=== PATIENT | male | born 1930 | race Caucasian/White ===

== ENCOUNTER 2018-05-20 22:02 | Inpatient (IN) | payer MEDICARE, BC ==
[~2018-05-20] VITALS: Ht 172.7 cm; Wt 79.5 kg
[~2018-05-20 22:02] MED LIST: COU1T PO; LISI-222 PO
[2018-05-20] MEDS ORDERED: CefTRIAXone 2gm/D5W 50ml 50 ML IV ONE (22:45)
[2018-05-20] MEDS ORDERED: normal saline 1000ML IV soln IVB ONE (22:45)
[2018-05-20 22:52] LABS: BASOPHILS % (AUTO) 0.4 % (0-1); EOSINOPHILS # (AUTO) 0.1 X10'3 (0-0.9); EOSINOPHILS % (AUTO) 1.3 % (0-6); HEMATOCRIT 46.9 % (42.0-52.0); HEMOGLOBIN 15.6 g/dl (14.0-17.9); LYMPHOCYTES # (AUTO) 0.7 X10'3 (1.1-4.8); LYMPHOCYTES % (AUTO) 8.4 % (21-51); MEAN CORPUSCULAR HEMOGLOBIN 29.9 PG (27.0-31.0); MEAN CORPUSCULAR HGB CONC 33.4 % (33.0-36.5); MEAN CORPUSCULAR VOLUME 89.7 FL (78-98); MEAN PLATELET VOLUME 9.2 FL (7.4-10.4); MONOCYTES # (AUTO) 0.5 X10'3 (0-0.9); MONOCYTES % (AUTO) 5.2 % (2-12); NEUTROPHILS # (AUTO) 7.4 X10'3 (1.8-7.7); NEUTROPHILS % (AUTO) 84.7 % (42-75); PLATELET COUNT 241 X10'3 (140-440); RED BLOOD COUNT 5.23 X10'6 (4.70-6.10); WHITE BLOOD COUNT 8.7 X10'3 (4.5-11.0)
[2018-05-20] MEDS ORDERED: acetaminophen 325mg tablet PO STA (22:52)
--- NOTE | 2018-05-20 23:01 | NUR ---
states pt has UTI and is on bactrim since Tuesday.
[2018-05-20 23:03] LABS: INR 1.5 INR; PARTIAL THROMBOPLASTIN TIME 30 SECONDS (22-32); PROTHROMBIN TIME 14.8 SECONDS (9.0-12.0)
[2018-05-20 23:11] LABS: ALANINE AMINOTRANSFERASE 20 U/L (12-78); ALBUMIN 3.9 G/DL (3.4-5.0); ALBUMIN/GLOBULIN RATIO 0.9 (1.1-1.5); ALKALINE PHOSPHATASE 108 IU/L (46-116); ANION GAP 13 (8-16); ASPARTATE AMINO TRANSFERASE 16 U/L (10-37); BILIRUBIN,TOTAL 0.6 MG/DL (0.1-1.0); BLOOD UREA NITROGEN 24 MG/DL (7-18); BUN/CREATININE RATIO 14.6 (5.4-32.0); CALCIUM 8.7 MG/DL (8.5-10.1); CHLORIDE 101 MMOL/L (99-107); CREATININE 1.64 MG/DL (0.60-1.10); GLUCOSE 113 MG/DL (70-104); POTASSIUM 4.5 MMOL/L (3.5-5.1); SODIUM 138 MMOL/L (135-145); TOTAL PROTEIN 8.2 G/DL (6.4-8.2); eGFR 40 ML/MIN
[2018-05-20 23:22] LABS: CLARITY,URINE CLEAR (Clear); COLOR,URINE YELLOW (Yellow); GLUCOSE, URINE NEGATIVE (Neg); KETONES,URINE TRACE mg/dl (Neg); LEUKOCYTE ESTERASE ,URINE NEGATIVE (Neg); NITRITES, URINE NEGATIVE (Neg); OCCULT BLOOD,URINE MODERATE (Neg); PROTEIN,URINE TRACE mg/dl (Neg); UROBILINOGEN,URINE 0.2 E.U/dL (0.2-1.0)
[2018-05-20 23:25] LABS: UA COLLECTION TYPE STRAIGHT CATH
[2018-05-20 23:25] LABS: MAGNESIUM 2.1 MG/DL (1.5-2.4)
[2018-05-20 23:39] LABS: BACTERIA,URINE NONE SEEN /HPF (Neg); HYALINE CASTS 0-3 /LPF (NEGATIVE); MUCUS STRANDS MODERATE /LPF (Neg); SQUAMOUS EPITHELIAL CELL,UR FEW /LPF (FEW); WBC,URINE 0-4 /HPF (0-4)
[2018-05-21] VITALS (25 sets, daily range): BP systolic 86–134; BP diastolic 42–95
[2018-05-21] MEDS ORDERED: acetaminophen 650mg rectal suppository RC PRN (00:05)
[2018-05-21] MEDS ORDERED: HYDROcodone/acetaminophen 10/325mg tab PO PRN (00:05)
[2018-05-21] MEDS ORDERED: metoclopramide 5 mg/ml inj IV PRN (00:05)
[2018-05-21] MEDS ORDERED: magnesium hydroxide 30ml (MOM) UD suspension PO PRN (00:05)
[2018-05-21] MEDS ORDERED: HYDROmorphone 1 mg/ml syringe IV PRN (00:05)
[2018-05-21] MEDS ORDERED: diltiazem 5mg/ml 5ml inj. IV ONE ×2 (00:05→14:55)
[2018-05-21] MEDS ORDERED: morphine 4 MG/ML inj SYRINge IV PRN (00:05)
[2018-05-21] MEDS ORDERED: normal saline 1000ML IV soln IV ONE (00:05)
[2018-05-21] MEDS ORDERED: diphenhydrAMINE 25mg capsule PO PRN (00:05)
[2018-05-21] MEDS ORDERED: mag hydrox/Alum hydrox/simeth 30ml oral suspension PO PRN (00:05)
[2018-05-21] MEDS ORDERED: ondansetron/PF 4mg/2ml inj IV PRN (00:05)
[2018-05-21] MEDS ORDERED: bisacodyl 10mg suppository rectal RC PRN (00:05)
[2018-05-21] MEDS ORDERED: acetaminophen 325mg tablet PO PRN ×2 (00:05)
[2018-05-21] MEDS ORDERED: diphenhydrAMINE 50 mg/ml inj IV PRN (00:05)
[2018-05-21] MEDS ORDERED: ibuprofen tablet 400 MG TABLET PO STA (00:08)
[2018-05-21] MEDS: normal saline 1000ml 1,000 ML IV SCH ×3 (01:20→21:20)
[2018-05-21 02:17] LABS: HEMOGLOBIN A1C 5.9 % (4.5-6.2)
[2018-05-21] MEDS ORDERED: METO50TA17 PO (02:21)
[2018-05-21 02:30] LABS: PHOSPHORUS 2.4 MG/DL (2.3-4.5)
[2018-05-21 04:35] LABS: TOTAL CELLS COUNTED 100
[2018-05-21 04:36] LABS: PLATELET ESTIMATE NORMAL
--- NOTE | 2018-05-21 06:49 | NUR ---
ATTEMPTED TO CALL REPORT. MARIAM COOK UNABLE TO TAKE REPORT. WILL CALL BACK
[2018-05-21] MEDS ORDERED: azithromycin/NS 500mg/250ml 250 ML IV SCH (08:00)
[2018-05-21] MEDS: CefTRIAXone/D5W-Rocephin 1gm 50 ML IV SCH ×2 (08:26→21:20)
[2018-05-21] MEDS: docusate sod 100mg capsule PO SCH ×2 (08:27→22:08)
[2018-05-21] MEDS: pantoprazole 40mg Tablet.DR PO SCH (08:27)
[2018-05-21 11:35] LABS: BASOPHILS % (AUTO) 0.6 % (0-1); EOSINOPHILS # (AUTO) 0.1 X10'3 (0-0.9); EOSINOPHILS % (AUTO) 1.8 % (0-6); HEMATOCRIT 44.5 % (42.0-52.0); HEMOGLOBIN 14.8 g/dl (14.0-17.9); LYMPHOCYTES # (AUTO) 0.6 X10'3 (1.1-4.8); LYMPHOCYTES % (AUTO) 7.3 % (21-51); MEAN CORPUSCULAR HEMOGLOBIN 29.6 PG (27.0-31.0); MEAN CORPUSCULAR HGB CONC 33.2 % (33.0-36.5); MEAN CORPUSCULAR VOLUME 89.2 FL (78-98); MONOCYTES # (AUTO) 0.4 X10'3 (0-0.9); MONOCYTES % (AUTO) 4.7 % (2-12); NEUTROPHILS # (AUTO) 6.5 X10'3 (1.8-7.7); NEUTROPHILS % (AUTO) 85.6 % (42-75); PLATELET COUNT 228 X10'3 (140-440); RED BLOOD COUNT 4.99 X10'6 (4.70-6.10); RED CELL DISTRIBUTION WIDTH 14.3 % (11.5-14.5); WHITE BLOOD COUNT 7.5 X10'3 (4.5-11.0)
[2018-05-21 11:45] LABS: INR 1.6 INR; PROTHROMBIN TIME 15.5 SECONDS (9.0-12.0)
[2018-05-21 11:48] LABS: ALANINE AMINOTRANSFERASE 13 U/L (12-78); ALBUMIN 3.2 G/DL (3.4-5.0); ALBUMIN/GLOBULIN RATIO 0.8 (1.1-1.5); ALKALINE PHOSPHATASE 89 IU/L (46-116); ANION GAP 12 (8-16); ASPARTATE AMINO TRANSFERASE 15 U/L (10-37); BILIRUBIN,TOTAL 0.5 MG/DL (0.1-1.0); BLOOD UREA NITROGEN 20 MG/DL (7-18); BUN/CREATININE RATIO 15.5 (5.4-32.0); CALCIUM 7.8 MG/DL (8.5-10.1); CHLORIDE 105 MMOL/L (99-107); CREATININE 1.29 MG/DL (0.60-1.10); GLUCOSE 108 MG/DL (70-104); POTASSIUM 4.1 MMOL/L (3.5-5.1); SODIUM 140 MMOL/L (135-145); TOTAL CARBON DIOXIDE 22.9 MMOL/L (24-32); eGFR 53 ML/MIN
[2018-05-21] MEDS ORDERED: albuterol 2.5 MG/3 ML nebule NEB ONE (12:10)
[2018-05-21] MEDS ORDERED: furosemide 20 MG/2 ML vial IV ONE (12:10)
[2018-05-21 12:21] LABS: ABG BASE EXCESS -6.5 mmol/L (-2.0-3.0); ABG HCO3 15.5 mmol/L (22.0-26.0); ABG OXYGEN SATURATION 96.3 % (95-98); ABG PCO2 (T) 23.8 mmHg (35.0-48.0); ABG PH (T) 7.433 (7.350-7.450); ABG PO2 (T) 80.6 mmHg (83-108); ALLEN'S TEST Positive; FCOHb 0.4 % (0.5-1.5); FO2Hb 95.9 % (94-100); TOTAL HEMOGLOBIN 15.2 G/dl (14.0-18.0)
--- NOTE | 2018-05-21 14:28 | NUR ---
1000 vitals for 05/21 wrong information. 1001 vitals are correct for 1000
[2018-05-21] MEDS: metoprolol tartrate 12.5mg (1/2 tablet) PO SCH ×3 (16:10→22:08)
[2018-05-21] MEDS ORDERED: diltiazem-D5W 125mg/125ml 125 ML IV PRN (16:42)
[2018-05-21] MEDS ORDERED: ketorolac tromethamine 15mg/ml inj. IV ONE (17:20)
--- NOTE | 2018-05-21 17:59 | NUR ---
Problems reprioritized. Patient report given, questions answered & plan of care reviewed with Koki COOK.
--- NOTE | 2018-05-21 18:50 | NUR ---
Page to Dr. Martin PAGER ID: [phone] MESSAGE: Re: Speedy Palmer RM: [id number] I am concerned about his fever maintaining after Tylenol and Toradol. Do you want to start some fluids? Heart rate still elevated starting Cardizem now. [facility] [phone] Dr. Martin returned call. Ordered 80ml/hr of normal saline. with continued cool packs to arm pits, groin, head and neck. Start Cardizem at 5mg/hr.
[2018-05-21] MEDS ORDERED: warfarin 1mg tablet PO SCH (20:00)
[2018-05-21] MEDS: furosemide 20 MG/2 ML vial IV SCH ×2 (20:00→22:34)
[2018-05-21] MEDS ORDERED: warfarin 1mg tablet PO ONE (21:00)
[2018-05-21] MEDS ORDERED: temazepam 15mg capsule PO PRN (21:00)
[2018-05-21] MEDS: diatr meglu/diatrizoate 30ml oral sol.-(3 dose) bottle PO SCH (22:10)
[2018-05-22] VITALS (26 sets, daily range): BP systolic 94–137; BP diastolic 38–99
--- NOTE | 2018-05-22 05:06 | NUR ---
Page to Dr. Schmidt. + Blood culture. PAGER ID: [phone] MESSAGE: Re: Speedy Leonsharita Rm [id number]. Positive blood culture gram + cocci. Patient is receiving Rocephin. Sarah QUINTEROU x [phone] Addendum: 05/22/18 at 0516 by Saundra Gay RN DR. SCHMIDT returned call. ORDER: D/C Rocephin start Vancomycin 1 gm BID
--- NOTE | 2018-05-22 06:05 | NUR ---
Problems reprioritized. Patient report given, questions answered & plan of care reviewed with JOEY Arguello. Patient awake and alert still oriented to person only at time of report.
--- NOTE | 2018-05-22 06:37 | NUR ---
Patient in room PCU 3017. I have received report from Sarah COOK and had the opportunity to ask questions and assume patient care. Pt is awake and respond appropriately. Normal Saline going at 80 mL/hr and Cardizem at 5 mL/hr. Will continue to monitor.
[2018-05-22 06:47] LABS: BASOPHILS % (AUTO) 0.3 % (0-1); EOSINOPHILS % (AUTO) 0.2 % (0-6); HEMATOCRIT 38.9 % (42.0-52.0); HEMOGLOBIN 12.8 g/dl (14.0-17.9); LYMPHOCYTES # (AUTO) 0.9 X10'3 (1.1-4.8); LYMPHOCYTES % (AUTO) 11.7 % (21-51); MEAN CORPUSCULAR HEMOGLOBIN 29.6 PG (27.0-31.0); MEAN CORPUSCULAR HGB CONC 32.9 % (33.0-36.5); MEAN PLATELET VOLUME 9.4 FL (7.4-10.4); MONOCYTES # (AUTO) 0.6 X10'3 (0-0.9); MONOCYTES % (AUTO) 7.2 % (2-12); NEUTROPHILS # (AUTO) 6.6 X10'3 (1.8-7.7); NEUTROPHILS % (AUTO) 80.6 % (42-75); PLATELET COUNT 205 X10'3 (140-440); RED BLOOD COUNT 4.33 X10'6 (4.70-6.10); RED CELL DISTRIBUTION WIDTH 14.2 % (11.5-14.5); WHITE BLOOD COUNT 8.1 X10'3 (4.5-11.0)
[2018-05-22 06:49] LABS: ALANINE AMINOTRANSFERASE 17 U/L (12-78); ALBUMIN/GLOBULIN RATIO 0.8 (1.1-1.5); ALKALINE PHOSPHATASE 70 IU/L (46-116); ANION GAP 11 (8-16); ASPARTATE AMINO TRANSFERASE 19 U/L (10-37); BILIRUBIN,TOTAL 0.6 MG/DL (0.1-1.0); BLOOD UREA NITROGEN 15 MG/DL (7-18); BUN/CREATININE RATIO 10.6 (5.4-32.0); CALCIUM 7.9 MG/DL (8.5-10.1); CHLORIDE 103 MMOL/L (99-107); CHOL/HDL RATIO 3.6 (0.00-4.99); CHOLESTEROL 130 MG/DL (0-200); CREATININE 1.41 MG/DL (0.60-1.10); GLUCOSE 104 MG/DL (70-104); HDL CHOLESTEROL 36 MG/DL (35-60); LDL CHOLESTEROL 80 MG/DL (50-100); POTASSIUM 3.5 MMOL/L (3.5-5.1); SODIUM 137 MMOL/L (135-145); TOTAL PROTEIN 6.6 G/DL (6.4-8.2); TRIGLYCERIDES 76 MG/DL (20-135); eGFR 48 ML/MIN
[2018-05-22 07:06] LABS: INR 1.7 INR; PROTHROMBIN TIME 16.8 SECONDS (9.0-12.0)
[2018-05-22 07:12] LABS: INR 1.7 INR; PROTHROMBIN TIME 16.9 SECONDS (9.0-12.0)
[2018-05-22] MEDS: metoprolol tartrate 12.5mg (1/2 tablet) PO SCH ×2 (07:18→20:05)
[2018-05-22] MEDS: pantoprazole 40mg Tablet.DR PO SCH (07:18)
[2018-05-22] MEDS: diatr meglu/diatrizoate 30ml oral sol.-(3 dose) bottle PO SCH ×2 (07:18→11:12)
[2018-05-22] MEDS: docusate sod 100mg capsule PO SCH ×2 (07:18→20:00)
[2018-05-22] MEDS: vancomycin/NS 1 GM ADD-VANTAGE 250 ML IV SCH (07:19)
[2018-05-22] MEDS: furosemide 20 MG/2 ML vial IV SCH ×2 (07:19→20:00)
[2018-05-22] MEDS: lisinopril 2.5mg tablet PO SCH (08:00)
[2018-05-22] MEDS: normal saline 1000ml 1,000 ML IV SCH (08:05)
[2018-05-22] MEDS ORDERED: pneumococcal 23-VAL P-sac vacc 25 mcg/0.5ml vial IMVAC ONE (10:00)
--- NOTE | 2018-05-22 10:43 | NUR ---
PAGER ID: [phone] MESSAGE: [phone] Radhika PalmerSpeedy Increased Cardizem to 7 mg/hr about 1 hour ago. Patient's BP is 109/44 and HR is 91. He is on NS at 80 mL/hr, continue IV fluids? Thank you, Saundra #[phone] Addendum: 05/22/18 at 1051 by Saundra Clemente RN Dr. Martin called back. Per Dr. Martin, continue Cardizem 7 mg/hr and discontinue IV NS of 80 mL/hr. Will continue to monitor.
--- NOTE | 2018-05-22 12:21 | NUR ---
PAGER ID: [phone] MESSAGE: [phone] has resulted. Can patient eat and drink? Thank you, Saundra #[phone]
[2018-05-22] MEDS ORDERED: diltiazem-D5W 125mg/125ml 125 ML IV PRN (16:42)
--- NOTE | 2018-05-22 18:39 | NUR ---
Problems reprioritized. Patient report given, questions answered & plan of care reviewed with Bandar COOK.
[2018-05-22] MEDS ORDERED: warfarin 1mg tablet PO ONE (21:00)
[2018-05-23] VITALS (14 sets, daily range): BP systolic 100–138; BP diastolic 59–96
[2018-05-23 05:44] LABS: BASOPHILS % (AUTO) 0.4 % (0-1); EOSINOPHILS # (AUTO) 0.4 X10'3 (0-0.9); EOSINOPHILS % (AUTO) 5.3 % (0-6); HEMATOCRIT 40.9 % (42.0-52.0); HEMOGLOBIN 13.8 g/dl (14.0-17.9); LYMPHOCYTES # (AUTO) 1.4 X10'3 (1.1-4.8); MEAN CORPUSCULAR HEMOGLOBIN 29.7 PG (27.0-31.0); MEAN CORPUSCULAR HGB CONC 33.6 % (33.0-36.5); MEAN CORPUSCULAR VOLUME 88.4 FL (78-98); MONOCYTES # (AUTO) 0.7 X10'3 (0-0.9); MONOCYTES % (AUTO) 9.2 % (2-12); NEUTROPHILS % (AUTO) 66.1 % (42-75); PLATELET COUNT 215 X10'3 (140-440); RED BLOOD COUNT 4.63 X10'6 (4.70-6.10); RED CELL DISTRIBUTION WIDTH 13.9 % (11.5-14.5); WHITE BLOOD COUNT 7.5 X10'3 (4.5-11.0)
[2018-05-23 05:59] LABS: ALANINE AMINOTRANSFERASE 17 U/L (12-78); ALBUMIN/GLOBULIN RATIO 0.8 (1.1-1.5); ALKALINE PHOSPHATASE 77 IU/L (46-116); ANION GAP 13 (8-16); ASPARTATE AMINO TRANSFERASE 19 U/L (10-37); BILIRUBIN,TOTAL 0.8 MG/DL (0.1-1.0); BLOOD UREA NITROGEN 13 MG/DL (7-18); BUN/CREATININE RATIO 12.1 (5.4-32.0); CALCIUM 8.5 MG/DL (8.5-10.1); CHLORIDE 102 MMOL/L (99-107); CREATININE 1.07 MG/DL (0.60-1.10); GLUCOSE 96 MG/DL (70-104); POTASSIUM 3.3 MMOL/L (3.5-5.1); SODIUM 137 MMOL/L (135-145); TOTAL CARBON DIOXIDE 22.5 MMOL/L (24-32); TOTAL PROTEIN 6.8 G/DL (6.4-8.2); eGFR 66 ML/MIN
[2018-05-23 06:01] LABS: INR 1.6 INR; PROTHROMBIN TIME 15.6 SECONDS (9.0-12.0)
--- NOTE | 2018-05-23 06:41 | NUR ---
Patient in room PCU 3017. I have received report from Bandar COOK and had the opportunity to ask questions and assume patient care. Will continue to monitor.
[2018-05-23] MEDS: docusate sod 100mg capsule PO SCH ×2 (08:00→20:00)
[2018-05-23] MEDS: metoprolol tartrate 12.5mg (1/2 tablet) PO SCH ×3 (08:00→20:07)
[2018-05-23] MEDS: lisinopril 2.5mg tablet PO SCH (08:00)
--- NOTE | 2018-05-23 08:30 | NUR ---
Spoke with Dr. Martin regarding patients low blood pressure of (100/72), pt is on Cardizem 7 mg/hr, and is scheduled to take Metoprolol PO, Lisinopril PO, and Lasix [address] Martin, change Cardizem drip to 5 mg/hr, give the Lasix, and hold the Metoprolol and Lisinopril. Per Dr. Martin, new order electrolyte replacement protocol. Will monitor continue to monitor
[2018-05-23] MEDS: pantoprazole 40mg Tablet.DR PO SCH (08:40)
[2018-05-23] MEDS: vancomycin/NS 1 GM ADD-VANTAGE 250 ML IV SCH (08:40)
[2018-05-23] MEDS: furosemide 20 MG/2 ML vial IV SCH ×2 (08:50→20:07)
[2018-05-23] MEDS ORDERED: magnesium 4gm in 100ml NS 100 ML IV PRN (08:55)
[2018-05-23] MEDS ORDERED: potassium Cl 20 mEq SR tablet PO PRN (08:55)
[2018-05-23] MEDS ORDERED: potassium Cl 40MEQ/NS 500ml 500 ML IV PRN ×2 (08:55)
[2018-05-23] MEDS ORDERED: diltiazem-D5W 125mg/125ml 125 ML IV PRN (09:08)
[2018-05-23] MEDS: potassium Cl 20 mEq SR tablet PO PRN ×3 (09:09→20:07)
[2018-05-23] MEDS: CefTRIAXone/D5W-Rocephin 1gm 50 ML IV SCH (13:08)
--- NOTE | 2018-05-23 18:10 | NUR ---
Problems reprioritized. Patient report given, questions answered & plan of care reviewed with Bandar COOK.
[2018-05-23] MEDS ORDERED: warfarin 3mg tablet PO ONE (21:00)
[2018-05-24 03:00] VITALS: BP 135/94
--- NOTE | 2018-05-24 03:54 | NUR ---
PAGER ID: [phone] MESSAGE: Bandar pickering [phone], Speedy Palmer [id number] Admitted for UTI sepsis, ALOC Afib RVR 05/21, Cardizem gtt DC'd 05/23 HR 120-130 Has Metoprolol 12.5 mg PO BID Add PO Cardizem? Addendum: 05/24/18 at 0435 by Bandar Jacobo RN ORDER: Cardizem 10mg IV Push now, repeat Q1H if HR not 80-90 if second IV push of Cardizem does not bring HR between 80-90 bpm, restart cardizem gtt @ 5mg/hr to reach goal of HR 80-90 bpm
[2018-05-24] MEDS ORDERED: diltiazem 5mg/ml 5ml inj. IV ONE (04:00)
[2018-05-24 06:00] VITALS: BP 127/91
--- NOTE | 2018-05-24 06:17 | NUR ---
Patient in room PCU 3017. I have received report from Bandar COOK and had the opportunity to ask questions and assume patient care.
[2018-05-24 06:45] LABS: INR 1.6 INR; PROTHROMBIN TIME 15.6 SECONDS (9.0-12.0)
[2018-05-24 06:54] LABS: ALANINE AMINOTRANSFERASE 10 U/L (12-78); ALBUMIN 2.9 G/DL (3.4-5.0); ALBUMIN/GLOBULIN RATIO 0.7 (1.1-1.5); ALKALINE PHOSPHATASE 72 IU/L (46-116); ANION GAP 14 (8-16); ASPARTATE AMINO TRANSFERASE 14 U/L (10-37); BILIRUBIN,TOTAL 0.8 MG/DL (0.1-1.0); BLOOD UREA NITROGEN 15 MG/DL (7-18); BUN/CREATININE RATIO 13.3 (5.4-32.0); CALCIUM 8.9 MG/DL (8.5-10.1); CHLORIDE 101 MMOL/L (99-107); CREATININE 1.13 MG/DL (0.60-1.10); GLUCOSE 101 MG/DL (70-104); POTASSIUM 3.5 MMOL/L (3.5-5.1); SODIUM 138 MMOL/L (135-145); TOTAL CARBON DIOXIDE 23.3 MMOL/L (24-32); eGFR 62 ML/MIN
[2018-05-24 07:02] LABS: INR 1.6 INR; PROTHROMBIN TIME 16.1 SECONDS (9.0-12.0)
[2018-05-24] MEDS: CefTRIAXone/D5W-Rocephin 1gm 50 ML IV SCH (08:26)
[2018-05-24] MEDS: lisinopril 2.5mg tablet PO SCH (08:26)
[2018-05-24] MEDS: metoprolol tartrate 12.5mg (1/2 tablet) PO SCH ×2 (08:27→23:05)
[2018-05-24] MEDS: furosemide 20 MG/2 ML vial IV SCH ×2 (08:27→23:04)
[2018-05-24] MEDS: docusate sod 100mg capsule PO SCH ×2 (08:27→20:00)
[2018-05-24] MEDS: pantoprazole 40mg Tablet.DR PO SCH (08:27)
[2018-05-24 09:54] LABS: MAGNESIUM 1.9 MG/DL (1.5-2.4)
[2018-05-24 11:00] VITALS: BP 101/64
[2018-05-24 15:00] VITALS: BP 101/68
[2018-05-24] MEDS: cefpodoxime proxetil 100mg tablet PO SCH (17:56)
--- NOTE | 2018-05-24 18:25 | NUR ---
Problems reprioritized. Patient report given, questions answered & plan of care reviewed with Bandar COOK.
[2018-05-24 19:00] VITALS: BP 105/66
[2018-05-24] MEDS ORDERED: warfarin 5mg tablet PO ONE (21:00)
[2018-05-24 23:00] VITALS: BP 127/91
[2018-05-24] MEDS: lactobacillus rhamnosus 10,000 MMU CELLS/CAPSULE PO SCH (23:04)
[2018-05-25] VITALS (7 sets, daily range): BP systolic 76–137; BP diastolic 54–110
[2018-05-25 06:03] LABS: ALANINE AMINOTRANSFERASE 20 U/L (12-78); ALBUMIN/GLOBULIN RATIO 0.7 (1.1-1.5); ALKALINE PHOSPHATASE 73 IU/L (46-116); ANION GAP 11 (8-16); ASPARTATE AMINO TRANSFERASE 18 U/L (10-37); BILIRUBIN,TOTAL 0.6 MG/DL (0.1-1.0); BLOOD UREA NITROGEN 21 MG/DL (7-18); BUN/CREATININE RATIO 17.5 (5.4-32.0); CALCIUM 8.6 MG/DL (8.5-10.1); CHLORIDE 101 MMOL/L (99-107); GLUCOSE 102 MG/DL (70-104); POTASSIUM 3.3 MMOL/L (3.5-5.1); SODIUM 140 MMOL/L (135-145); TOTAL CARBON DIOXIDE 27.7 MMOL/L (24-32); TOTAL PROTEIN 7.2 G/DL (6.4-8.2); eGFR 57 ML/MIN
[2018-05-25 06:07] LABS: INR 1.7 INR
--- NOTE | 2018-05-25 06:30 | NUR ---
Patient in room PCU 3017. I have received report from JOEY Portillo and had the opportunity to ask questions and assume patient care.
[2018-05-25] MEDS ORDERED: VANCOMYCIN LEVEL IV ONE (07:30)
[2018-05-25] MEDS: lactobacillus rhamnosus 10,000 MMU CELLS/CAPSULE PO SCH ×2 (08:31→19:46)
[2018-05-25] MEDS: pantoprazole 40mg Tablet.DR PO SCH (08:32)
[2018-05-25] MEDS: metoprolol tartrate 12.5mg (1/2 tablet) PO SCH ×2 (08:32→19:47)
[2018-05-25] MEDS: cefpodoxime proxetil 100mg tablet PO SCH ×2 (08:32→19:46)
[2018-05-25] MEDS: lisinopril 2.5mg tablet PO SCH (08:32)
[2018-05-25] MEDS: docusate sod 100mg capsule PO SCH ×2 (08:32→19:46)
[2018-05-25] MEDS: furosemide 20 MG/2 ML vial IV SCH ×2 (08:33→19:47)
[2018-05-25] MEDS: potassium Cl 20 mEq SR tablet PO PRN ×3 (08:33→19:46)
--- NOTE | 2018-05-25 09:39 | NUR ---
[facility] PROVIDED, NEW [employer] CATHETER APPLIED.
--- NOTE | 2018-05-25 09:50 | NUR ---
PT LEFT ALERT AND ORIENTED, STABLE FOR DISCHARGE. PT ACCOMPANIED BY MOTHER. ALL EDUCATION GIVEN TO PATIENT VERBALLY AND HAND OUTS WITH DISCHARGE FOLDER. PATIENT UNDERSTANDS THE IMPORTANCE OF FOLLOWING UP WITH PCP IN [facility], AND MANAGING DIABETES AND LOWERING A1C. NO NEW MEDICATIONS, PATIENT INSTRUCTED TO FOLLOW MEDICATION REGIMEN AND TO FOLLOW UP WITH PCP. IV REMOVED, CANNULA INTACT, TELE REMOVED AND RETURNED TO CONFIGURATION ANALYST. PATIENT ACCOMPANIED BY MOTHER AND RN DOWNSTAIRS TO LEAVE VIA PRIVATE VEHICLE BACK HOME. Addendum: 05/25/18 at 1026 by Clementine Vences RN PLEASE DISREGARD.
--- NOTE | 2018-05-25 10:21 | NUR ---
Paged Dr Bond PAGER ID: [phone] MESSAGE: Speedy Manley [id number], FYI, pt ambulated FWW, 400 ft, 1x assist to get out of bed. HR increased to 130's. thanks Clementine ext [phone]
--- NOTE | 2018-05-25 12:05 | NUR ---
Pt 1100 BP was 76/54. Pt was sitting in chair at the bedside, reassessed bp and it was 69/50. Helped Pt back into bed safely and will re-check BP in 10 min.
--- NOTE | 2018-05-25 12:12 | NUR ---
PER DR. MOREAU, WILL BOLUS PATIENT 500CC, AND RECHECK BLOOD PRESSURE. ORTHOSTATICS TO BE DONE Q SHIFT.
--- NOTE | 2018-05-25 13:38 | NUR ---
PT FINISHED BOLUS PER PROVIDER ORDER AND BP WAS 137/110. WILL CONTINUE TO MONITOR.
--- NOTE | 2018-05-25 15:45 | NUR ---
ORTHOSTATIC VITALS: LAYING BP 107/64, HR 71, O2 96% RA SITTING 123/89, HR 93, O2 96% RA STANDING 107/79, HR 94, O2 97% RA
--- NOTE | 2018-05-25 18:30 | NUR ---
Problems reprioritized. Patient report given, questions answered & plan of care reviewed with JOEY BIANCHI.
--- NOTE | 2018-05-25 18:31 | NUR ---
Patient in room PCU 3017. I have received report from JOEY Spring and had the opportunity to ask questions and assume patient care.
[2018-05-25] MEDS ORDERED: warfarin 5mg tablet PO ONE (21:00)
[2018-05-26 03:00] VITALS: BP 146/99
[2018-05-26 06:00] VITALS: BP 144/94
--- NOTE | 2018-05-26 06:30 | NUR ---
Patient in room PCU 3017. I have received report from JOEY Vega and had the opportunity to ask questions and assume patient care.
--- NOTE | 2018-05-26 06:34 | NUR ---
Problems reprioritized. Patient report given, questions answered & plan of care reviewed with JOEY Spring.
[2018-05-26 06:41] LABS: BASOPHILS # (AUTO) 0.1 X10'3 (0-0.2); BASOPHILS % (AUTO) 0.9 % (0-1); EOSINOPHILS # (AUTO) 0.5 X10'3 (0-0.9); EOSINOPHILS % (AUTO) 5.6 % (0-6); HEMATOCRIT 45.3 % (42.0-52.0); HEMOGLOBIN 14.8 g/dl (14.0-17.9); LYMPHOCYTES # (AUTO) 1.9 X10'3 (1.1-4.8); LYMPHOCYTES % (AUTO) 21.3 % (21-51); MEAN CORPUSCULAR HEMOGLOBIN 29.2 PG (27.0-31.0); MEAN CORPUSCULAR HGB CONC 32.7 % (33.0-36.5); MEAN CORPUSCULAR VOLUME 89.2 FL (78-98); MEAN PLATELET VOLUME 8.9 FL (7.4-10.4); MONOCYTES # (AUTO) 0.6 X10'3 (0-0.9); MONOCYTES % (AUTO) 6.5 % (2-12); NEUTROPHILS % (AUTO) 65.7 % (42-75); PLATELET COUNT 302 X10'3 (140-440); RED BLOOD COUNT 5.08 X10'6 (4.70-6.10); RED CELL DISTRIBUTION WIDTH 13.8 % (11.5-14.5); WHITE BLOOD COUNT 9.1 X10'3 (4.5-11.0)
[2018-05-26 07:05] LABS: ALANINE AMINOTRANSFERASE 26 U/L (12-78); ALBUMIN 3.1 G/DL (3.4-5.0); ALBUMIN/GLOBULIN RATIO 0.7 (1.1-1.5); ALKALINE PHOSPHATASE 82 IU/L (46-116); ANION GAP 13 (8-16); ASPARTATE AMINO TRANSFERASE 23 U/L (10-37); BILIRUBIN,TOTAL 0.5 MG/DL (0.1-1.0); BLOOD UREA NITROGEN 36 MG/DL (7-18); BUN/CREATININE RATIO 25.2 (5.4-32.0); CALCIUM 8.8 MG/DL (8.5-10.1); CHLORIDE 104 MMOL/L (99-107); CREATININE 1.43 MG/DL (0.60-1.10); GLUCOSE 99 MG/DL (70-104); POTASSIUM 4.2 MMOL/L (3.5-5.1); SODIUM 141 MMOL/L (135-145); TOTAL CARBON DIOXIDE 24.4 MMOL/L (24-32); TOTAL PROTEIN 7.3 G/DL (6.4-8.2); eGFR 47 ML/MIN
[2018-05-26 07:07] LABS: INR 2.1 INR; PROTHROMBIN TIME 20.6 SECONDS (9.0-12.0)
[2018-05-26 08:00] VITALS: BP_SYST 100; BP_SYST 88; BP_SYST 92; BP_DIAS 60; BP_DIAS 70; BP_DIAS 77
[2018-05-26] MEDS: furosemide 20 MG/2 ML vial IV SCH (08:00)
[2018-05-26] MEDS: cefpodoxime proxetil 100mg tablet PO SCH (08:38)
[2018-05-26] MEDS: docusate sod 100mg capsule PO SCH (08:38)
[2018-05-26] MEDS: lactobacillus rhamnosus 10,000 MMU CELLS/CAPSULE PO SCH (08:38)
[2018-05-26] MEDS: metoprolol tartrate 12.5mg (1/2 tablet) PO SCH (08:38)
[2018-05-26] MEDS: lisinopril 2.5mg tablet PO SCH (08:38)
[2018-05-26] MEDS: pantoprazole 40mg Tablet.DR PO SCH (08:39)
--- NOTE | 2018-05-26 09:00 | NUR ---
per dr. martinez, will non admin Lasix 20mg IV due to orthostatic event yesterday, and BUN and CR increasing.
[2018-05-26 11:00] VITALS: BP_SYST 100; BP_SYST 88; BP_SYST 92; BP_DIAS 60; BP_DIAS 70; BP_DIAS 77
[2018-05-26] MEDS ORDERED: METO25TA6 PO (12:21)
--- NOTE | 2018-05-26 15:45 | NUR ---
PT LEFT LOC @ BASELINE, STABLE FOR DISCHARGE HOME. ACCOMPANIED PATIENT. ALL PATIENT TEACHING GIVEN ALONG WITH DISCHARGE PACKET. PT'S UNDERSTANDS ALL TEACHING, RECEIVED NEW MEDICATION FROM BRAUN BEDSIDE, AND VERBALIZES UNDERSTANDING OF ALL TEACHING. PATIENT KNOWS TO TAKE BLOOD PRESSURE BEFORE GIVING METOPROLOL. PT ALREADY CALLED DR. CARL'S OFFICE FOR FOLLOW UP APPOINTMENT. IV REMOVED, CANNULA INTACT. TELE MONITOR REMOVED AND RETURNED TO TELE. ALL QUESTIONS AND CONCERNS ADDRESSED. PATIENT WHEELED DOWNSTAIRS BY RN TO LEAVE VIA PRIVATE VEHICLE TO GO HOME WITH . ROOM STRIPPED.
[2018-05-26] MEDS ORDERED: warfarin 1mg tablet PO ONE (21:00)
== END 2018-05-26 15:45 | disposition home health service (06) | DRG 871 ==
LOC: ER 22:02 → ED HOLD 05-21 00:05 → ORTHO 4S 05-21 07:42 → PCU 3S 05-21 17:50
PROVIDERS: ADMIT Family Medicine; ATTEND Internal Medicine
DX: A41.9 Sepsis, unspecified organism (principal); G93.41 Metabolic encephalopathy; I50.23 Acute on chronic systolic (congestive) heart failure; J96.01 Acute respiratory failure with hypoxia; J98.11 Atelectasis; N17.9 Acute kidney failure, unspecified; N39.0 Urinary tract infection, site not specified; C61 Malignant neoplasm of prostate; I11.0 Hypertensive heart disease with heart failure; I95.1 Orthostatic hypotension; T50.2X5A Adverse effect of carbonic-anhydrase inhibitors, benzothiadiazides and other diuretics, initial encounter; F03.90 Unspecified dementia, unspecified severity, without behavioral disturbance, psychotic disturbance, mood disturbance, and anxiety; I34.0 Nonrheumatic mitral (valve) insufficiency; I48.91 Unspecified atrial fibrillation; K76.9 Liver disease, unspecified; N20.0 Calculus of kidney; R32 Unspecified urinary incontinence; Z95.0 Presence of cardiac pacemaker; Z79.899 Other long term (current) drug therapy; Z79.01 Long term (current) use of anticoagulants; Z79.818 Long term (current) use of other agents affecting estrogen receptors and estrogen levels; Z86.73 Personal history of transient ischemic attack (TIA), and cerebral infarction without residual deficits
CPT/HCPCS: 36415; 36600; 70450; 71045; 71250; 74176; 80053; 80061; 81001; 82803; 83036; 83605; 83690; 83735; 83880; 84100; 84145; 84484; 85018; 85025; 85610; 85730; 87040; 87070; 87077; 87186; 93005; 93306; 94640; 94760; 96365; 97116; 97161; 97530; 99291; G0378; J0456; J0696; J1885; J1940; J3370; J3490; J7030; Q9963